=== PATIENT | female | born 1965 ===

== ENCOUNTER 2017-09-12 12:04 | Outpatient (CLI) | payer OTHER | END 2017-09-12 12:05 | disposition home or self-care (01) | LOC: CONVCARE 12:04 | PROVIDERS: ATTEND Orthopaedic Surgery | DX: M25.511 Pain in right shoulder (principal); M25.562 Pain in left knee; M75.41 Impingement syndrome of right shoulder; M17.12 Unilateral primary osteoarthritis, left knee | CPT/HCPCS: 73030; 73560 ==

== ENCOUNTER 2018-02-14 08:16 | Day surgery (SDC) | payer OTHER ==
[~2018-02-14 08:16] MED LIST: PROPOFOL 500 MG/50 ML EMU IV ONE
[2018-02-14 10:56] VITALS: TEMP 98.1
[2018-02-14 11:15] VITALS: BP 119/79; PULSE 74; RESP 20; O2SAT 95
== END 2018-02-14 11:26 | disposition home or self-care (01) ==
LOC: SURG 08:16
PROVIDERS: ATTEND Internal Medicine Gastroenterology
DX: Z12.11 Encounter for screening for malignant neoplasm of colon (principal); Z80.0 Family history of malignant neoplasm of digestive organs; K57.32 Diverticulitis of large intestine without perforation or abscess without bleeding; K64.8 Other hemorrhoids
CPT/HCPCS: J2704

== ENCOUNTER 2018-10-04 07:19 | Day surgery (SDC) | payer BC, OTHER ==
[2018-10-04] MEDS ORDERED: BUPIVACAINE/EPI 0.5% 10 ML SOL INFIL ONE (07:45)
[2018-10-04] MEDS ORDERED: ROCURONIUM BROMIDE 10 MG/ML SOL IV ONE (07:56)
[2018-10-04] MEDS ORDERED: SUCCINYLCHOLINE CHLORIDE 20 MG/ML SOL IV ONE (07:56)
[2018-10-04] MEDS ORDERED: FENTANYL 100MCG/2ML SOL ONE ×2 (07:59→08:47)
[2018-10-04] MEDS ORDERED: GLYCOPYRROLATE 0.2 MG/ML SOL ONE (08:00)
[2018-10-04] MEDS ORDERED: PROPOFOL 10 MG/ML 200 MG/20 ML EMU IV ONE (08:00)
[2018-10-04] MEDS ORDERED: EPHEDRINE SULFATE 50 MG/ML SOL ONE (08:00)
[2018-10-04] MEDS ORDERED: LIDOCAINE HCL 1% MPF 30 SOL ONE (08:00)
[2018-10-04] MEDS ORDERED: AMPICILLIN/SULBACTAM 3 GM PDS ONE (08:24)
[2018-10-04] MEDS ORDERED: NEOSTIGMINE METHYLSULFATE 1 MG/ML SOL ONE ×2 (08:55)
[2018-10-04] MEDS ORDERED: KETOROLAC TROMETHAMINE 30 MG/ML SOL ONE (09:28)
[2018-10-04] MEDS: MORPHINE SULFATE 10 MG/ML SOL ONE ×2 (09:39→09:58)
[2018-10-04] MEDS ORDERED: ONDANSETRON HCL 4 MG/2 ML SOL ONE (11:21)
[2018-10-04] MEDS ORDERED: METOCLOPRAMIDE HYDROCHLORIDE 5 MG/ML SOL ONE (12:11)
[2018-10-04 12:28] VITALS: BP 117/81; PULSE 94; RESP 20; TEMP 97.5; O2SAT 93
== END 2018-10-04 13:00 | disposition home or self-care (01) ==
LOC: SURG 07:19 → EDSTATUS 08:30 → SURG 13:00
PROVIDERS: ATTEND Surgery
DX: K36 Other appendicitis (principal)
CPT/HCPCS: 99001; J0295; J0330; J1885; J2270; J2405; J2710; J2765; J3010; J7643; J2001; J2704; J3490